=== PATIENT | female | born 1940 | race Caucasian/White ===

== ENCOUNTER → 2025-04-02 11:21 | Outpatient (REF) | payer MEDICARE, OTHER, SELFPAY ==
[2025-04-02 13:55] LABS: % Basophils 0.4 % (0-2); % Eosinophils 1.8 % (0-6); % Immature Granulocytes 0.2 % (0-0.5); % Lymphocytes 29.9 % (20.5-51.1); % Monocytes 9.1 % (1.7-9.3); % Neutrophils 58.6 % (42.2-75.2); Absolute Eosinophils 0.1 10^3/uL (0-0.7); Absolute Lymphocytes 1.6 10^3/uL (1.2-3.4); Absolute Monocytes 0.5 10^3/uL (0.1-0.6); Absolute Neutrophils 3.2 10^3/uL (1.4-6.5); Hematocrit 39.7 % (37.0-47.0); Hemoglobin 13.3 g/dL (12.0-16.0); Mean Corp Hgb Conc. 33.5 g/dL (33.0-37.0); Mean Corpuscular Hgb 31.4 pg (27.0-31.0); Mean Corpuscular Volume 93.6 fL (81.0-99.0); Nucleated Red Blood Cells % 0 %; Platelet Count 170 10^3/uL (130-400); Red Blood Cell Count 4.24 10^6/uL (4.20-5.40); Red Cell Dist. Width 11.9 % (11.5-14.5); White Blood Cell Count 5.5 10^3/uL (4.8-10.8)
[2025-04-02 15:13] LABS: ALT (SGPT) 20 U/L (0-35); AST (SGOT) 27 U/L (14-36); Albumin 4.6 g/dl (3.5-5.0); Alkaline Phosphatase 62 U/L (38-126); Blood Urea Nitrogen 18 mg/dl (7-17); Calcium 9.8 mg/dl (8.4-10.2); Carbon Dioxide 25 mmol/L (22-30); Chloride 112 mmol/L (98-107); Glucose 81 mg/dl (70-99); Magnesium 2.3 mg/dl (1.6-2.3); Sodium 143 mmol/L (135-145); Total Bilirubin 0.5 mg/dl (0.2-1.3); Total Protein 7.5 g/dl (6.3-8.2); eGFR > 60.00
== END ==
LOC: SDSPAT 11:21
PROVIDERS: ATTENDING PHYSICIAN Internal Medicine Cardiovascular Disease; FAMILY PHYSICIAN Family Medicine
DX: I50.22 Chronic systolic (congestive) heart failure (principal)
CPT/HCPCS: 36415; 80053; 83735; 85025; 93005

== ENCOUNTER 2025-04-15 10:13 | Day surgery (SDC) | payer MEDICARE, OTHER, SELFPAY ==
[2025-04-02 12:39] VITALS: BMI 35.5
[2025-04-15] VITALS (12 sets, daily range): BP systolic 102–173; BP diastolic 49–73
--- NOTE | 2025-04-15 07:34 | W.ICD.CONTRA ---
Post ICD/PEDIATRIC CLINICAL NURSE SPECIALIST-D
-
History of HI?: No
LV Function
Left ventricular function study result?: Ejection Fraction >/= 40%
ACEI/ARB/ARNI
Patient already on ACEI/ARB/ARNI: Yes
Beta-Keira
Patient already on Beta Keira: Yes
--- NOTE | 2025-04-15 07:59 | ITS.CL.ICD ---
Costume Cutter - ICD
Implantable Cardioverter Defibrillator
Procedure Report:
ICD GENERATOR CHANGE REPORT
Date of Procedure: 04/15/25
PROCEDURES:
1. Removal of PACKAGE MAKER ICD Generator, 2. PACKAGE MAKER ICD Implant
INDICATION FOR PROCEDURE:
1. ICD at [facility]
2. CARDIOMYOPATHY
Initial indication for implant is primary prevention
Life expectancy > 1 yr
'Time-out' was called and confirmed. The patient was prepped and draped in sterile fashion. Lidocaine with epi was used for local anesthesia. An incision was made along the previous incision and the device and leads were carefully dissected from
the pocket. Hemostasis was obtained with electrocautery. The leads were from the device header and tested using an external analyzer. The pocket was liberally irrigated with antibiotic solution. Once testing (see below) showed adequate
and stable function, the leads were connected to the generator header and the leads and generator were placed within the pocket. The pocket was closed in the typical fashion.
EXISTING ICD MEDTRONIC [id number], SN [id number]
IMPLANTED ICD: Medtronic [id number], SN [id number] [id number]
EXISTING LEADS:
RV Medtronic 6935M 55, SN [id number]
LV Medtronic [id number], SN [id number]
RA Medtronic 5086 MRI 45, SN LFP [id number] placed 05/23/14
ABANDONED:
Medtronic 5086 MRI 52, Capped 05/23/14
DEVICE TESTING:
Sensing: RA 1.4 mV, RV NA,
Capture: RA 0.5 V@ 0.4 ms, RV 0.5 V@ 0.4 ms, LV 3.25 V@ 0.4 ms,
Ohms: RA 380, RV 807, LV 632
FINAL PROGRAMMING:
Sav Pacing: DDDR 60 - 130 ppm
Tachy parameters:
VF: 188 bpm, ATP while charging, Shock
CONCLUSIONS:
1. Explant of ICD at [facility] [facility]
2. Successful implant ICD generator.
3. Normal function of ICD and leads at implant testing.
RECOMMENDATIONS:
1. Observation and consideration for discharge home later today.
2. In-Office wound check in 7 - 10 days.
== END 2025-04-15 14:34 | disposition home or self-care (01) ==
LOC: CATH 10:13
PROVIDERS: ATTENDING PHYSICIAN Internal Medicine Cardiovascular Disease; FAMILY PHYSICIAN Family Medicine
DX: Z45.02 Encounter for adjustment and management of automatic implantable cardiac defibrillator (principal); I44.2 Atrioventricular block, complete; I11.0 Hypertensive heart disease with heart failure; E78.5 Hyperlipidemia, unspecified; E66.9 Obesity, unspecified; Z68.35 Body mass index [BMI] 35.0-35.9, adult; Z87.891 Personal history of nicotine dependence; M19.90 Unspecified osteoarthritis, unspecified site; Z85.3 Personal history of malignant neoplasm of breast; Z92.3 Personal history of irradiation; Z79.899 Other long term (current) drug therapy; I42.0 Dilated cardiomyopathy; I50.32 Chronic diastolic (congestive) heart failure
CPT/HCPCS: 33264; C1882